=== PATIENT | female | born 1970 | race African-American/Black ===

== ENCOUNTER 2020-03-19 16:52 | Emergency (ER) | payer OTHER ==
[~2020-03-19] VITALS: Ht 162.6 cm; Wt 56.0 kg
[~2020-03-19 16:52] MED LIST: cough syrup
[2020-03-19] MEDS ORDERED: LIDOCAINE HCL 1% 20ML VIAL (Pyxis) INJ INFIL ONE (17:30)
[2020-03-19] MEDS ORDERED: IBUPROFEN 600MG TABLET PO ONE (17:30)
[2020-03-19] MEDS ORDERED: TETANUS, DIPHTHERIA, PERTUSSIS VAC/PF 0.5ML (>7YR OLD) IM ONE (17:30)
[2020-03-19 17:41] VITALS: BP 146/99
[2020-03-19] MEDS ORDERED: BACITRACIN ZINC OINT UDPKT TOP ONE (18:45)
== END 2020-03-19 19:14 | disposition home or self-care (01) ==
LOC: ER 16:52
DX: S61.412A Laceration without foreign body of left hand, initial encounter (principal); J45.909 Unspecified asthma, uncomplicated; X95.01XA Assault by airgun discharge, initial encounter; Y93.89 Activity, other specified; Y92.89 Other specified places as the place of occurrence of the external cause
CPT/HCPCS: 12001; 73130; 90471; 90715; 99283; J3490

== ENCOUNTER 2020-03-23 14:53 | Emergency (ER) | payer OTHER ==
[~2020-03-23] VITALS: Ht 157.5 cm; Wt 75.0 kg
[2020-03-23 14:54] VITALS: BP 103/88
[2020-03-23] MEDS ORDERED: BACITRACIN ZINC OINT UDPKT TOP ONE (15:30)
== END 2020-03-23 15:56 | disposition home or self-care (01) ==
LOC: ER 15:09
DX: Z48.00 Encounter for change or removal of nonsurgical wound dressing (principal)
CPT/HCPCS: 99282